=== PATIENT | female | born 1940 | race Two or more races ===

== ENCOUNTER 2017-02-08 16:18 | Inpatient (IN) | payer MEDICAID, MEDICARE ==
[~2017-02-08] VITALS: Ht 177.8 cm; Wt 67.1 kg
--- NOTE | 2017-02-08 16:38 | NUR ---
PT AMBULATORY TO ROOM, AWAITING MSE
--- NOTE | 2017-02-08 16:41 | NUR ---
PT AMBULATORY TO RESTROOM TO PROVIDE URINE SAMPLE
--- NOTE | 2017-02-08 17:07 | NUR ---
X-RAY AND LABTECH AT BEDSIDE.
--- NOTE | 2017-02-08 17:13 | NUR ---
EKG IN PROGRESS AT BEDSIDE BY DARRYL BAH
[2017-02-08 17:33] LABS: BASOPHIL % 0.5 % (0-2); PLATELET COUNT 233 x10^3mcL (130-400)
[2017-02-08 17:42] LABS: RED CELL DISTRIBUTION WIDTH 14.7 % (11.5-14.5)
--- NOTE | 2017-02-08 17:48 | NUR ---
BREATHING TX IN PROGRESS AT BEDSIDE
[2017-02-08 17:53] LABS: ALKALINE PHOSPHATASE 90 U/L (46-116); ALT/SGPT 10 U/L (14-59); AST/SGOT 14 U/L (15-37); BILIRUBIN TOTAL 0.9 mg/dL (0.20-1.00); C REACTIVE PROTEIN 3.2 mg/dL (<=0.9); CALCIUM 8.7 mg/dL (8.5-10.1); CARBON DIOXIDE 33.2 mmol/L (21-32); CHLORIDE SERUM 98 mmol/L (98-107); CREATININE SERUM 1.2 mg/dL (0.6-1.0); GLUCOSE SERUM 101 mg/dL (74-106); SODIUM SERUM 140 mmol/L (136-145); TOTAL PROTEIN, SERUM 6.2 g/dL (6.4-8.2)
[2017-02-08 17:54] LABS: ALBUMIN 2.8 g/dL (3.4-5.0)
[2017-02-08 17:55] LABS: POTASSIUM SERUM 2.9 mmol/L (3.5-5.1)
[2017-02-08] MEDS ORDERED: FUROSEMIDE40 MG PO (17:58)
[2017-02-08] MEDS ORDERED: CYCLOBENZAPRINE10 MG PO (17:59)
[2017-02-08] MEDS ORDERED: TOPROL XL25 MG PO (17:59)
[2017-02-08] MEDS ORDERED: XANAX0.25 MG PO (18:00)
[2017-02-08] MEDS ORDERED: FLOVENT DI100 MCG/A1 IH (18:00)
[2017-02-08] MEDS ORDERED: SPIRIVA18 MC1 INH (18:00)
[2017-02-08] MEDS ORDERED: PREDNISONE1 MG PO (18:01)
[2017-02-08] MEDS ORDERED: SIMVASTATIN20 M1 PO ×2 (18:01→20:17)
[2017-02-08] MEDS ORDERED: SEREVENT D0.046 MG/1 IH (18:01)
[2017-02-08] MEDS ORDERED: NIFEDIPINE30 MG PO (18:02)
[2017-02-08] MEDS ORDERED: ASPIR 8181 MG PO (18:02)
[2017-02-08] MEDS ORDERED: ACETAZOLAMIDE250 MG PO (18:02)
[2017-02-08 18:09] LABS: CK-MB 0.5 ng/mL (0-3.6)
[2017-02-08 18:10] LABS: UA SPECIFIC GRAVITY 1.025 (1.005-1.035)
[2017-02-08 18:11] LABS: microscopic required? YES; urine erythrocyte NEGATIVE (NEGATIVE)
[2017-02-08 18:16] LABS: FREE T4 1.26 ng/dL (0.76-1.46); FREE THYROXINE INDEX 3.2 ug/dL (1.4-4.5)
--- NOTE | 2017-02-08 18:21 | NUR ---
PT MEDICATED PER EMAR ORDERS. PT EDUCATED ON MEDICATIONS PRIOR TO ADMINISTRATION AND VERBALIZED UNDERSTANDING. PT REMAINS ON SOFTWARE DEVELOPMENT COORDINATOR WITH CALL LIGHT IN REACH
--- NOTE | 2017-02-08 18:49 | NUR ---
PT TO CT AND BACK VIA GURNEY WITHOUT INCIDENT. PT PLACED BACK ON CARDIAC MONITOIR WITH CALL LIGHT IN REACH.
--- NOTE | 2017-02-08 19:12 | NUR ---
REPORT GIVEN TO LATOYA SINHA TO ASSUME CARE OF PT PTS PRIMARY NURSE.
--- NOTE | 2017-02-08 20:43 | NUR ---
RECEIVED PT FROM ED VIA GUERNEY, CAME IN DUE TO SOB, DIARRHEA AND CHEST PAIN. AAOX4. SOB NOTED ON MODERATE EXERTION, ON 2.5LPM/NC, O2 SAT=96%. C/O MILD CHEST PAIN, SR W/ DEPRESSED T WAVE ON THE MONITOR. STATED THAT SHE HAS BEEN HAVING MUCOSY DIARRHEAL EPISODES. DENIES ABDOMINAL PAIN/NAUSEA/VOMITING. W/ BUE DARK DISCOLORATIONS. W/ EDEMA ON THE RIGHT HAND AND BLE (LEFT GREATER THAN RIGHT). PULSES ARE PALPABLE. RECEIVED PT FROM ED W/ HEPARIN DRIP ONGOING AT 1200 UNITS/HR. SIDE RAILS UPX2. CALL LIGHT ON REACH. DR. OCHOA AND MEDICAL STUDENT AT BEDSIDE. ENDORSED
[2017-02-08 20:55] VITALS: BP 125/60
[2017-02-08 20:57] VITALS: BP 125/60
--- NOTE | 2017-02-08 21:40 | NUR ---
SANDWICH AND TEA PROVIDED PER PATIENT'S REQUESTED. DENIES CHEST PAIN AT THIS TIME, STS " VERY RELAX". HEPARIN DRIPS ONGOING AT 1200 UNIT/HR TO LT HAND IV SITE. S/L TO RAC FLUSHED PATENT. BREATHING ON O2 N/C 2.5L. NO ACUTE DISTRESS NOTED. WILL CONTINUE TO MONITOR.
[2017-02-08 22:38] LABS: CHOLESTEROL/HDL RATIO 3.9; MAGNESIUM 1.8 mg/dL (1.8-2.4); PHOSPHOROUS 3.5 mg/dL (2.5-4.9)
--- NOTE | 2017-02-08 22:52 | NUR ---
STS HAVING PAIN LIKE NERVE PAIN TO BOTH HANDS. NORCO PO GIVEN, WILL CONTINUE TO MONITOR.
--- NOTE | 2017-02-08 22:55 | NUR ---
RESTING WITH EYES CLOSE. NO ANY DISTRESS NOTED. BSC PROVIDED. ROCEPHIN INFUSING WELL.
[2017-02-08 23:18] LABS: CARBON DIOXIDE 31.1 mmol/L (21-32); CHLORIDE SERUM 101 mmol/L (98-107); CREATININE SERUM 1.2 mg/dL (0.6-1.0); GLUCOSE SERUM 149 mg/dL (74-106); POTASSIUM SERUM 3.4 mmol/L (3.5-5.1); SODIUM SERUM 139 mmol/L (136-145)
--- NOTE | 2017-02-08 23:20 | NUR ---
HAD SEMI LOOSE BM, STOOL SPECIMEN SENT TO LAB FOR C DIFF.
--- NOTE | 2017-02-09 02:30 | NUR ---
PENING PTT RESULT.
--- NOTE | 2017-02-09 03:00 | NUR ---
LUH=802.8, HEPARIN HELD FOR 1 HOUR AND REDUCE INFUSION BY 200 UNITS/HR, HEPARIN WILL BE RESTARTED AT 0400HRS AT 1000 UNITS/HR PER PROTOCAL.
--- NOTE | 2017-02-09 04:00 | NUR ---
RESUMED HEPARIN DRIPS AT 1000 UNITS/HR PER PROTOCAL.
--- NOTE | 2017-02-09 05:25 | NUR ---
DENIES CHEST PAIN, BREATHING EASY ON O2 2.5L/M N/C. HAD WATERY BM X3 USING BSC WITH MINIMAL ASSISTANCE. DUE MEDS GIVEN. TOLERATED TO REGULAR DIET, NO VOMITING NOTED. HEPARIN ONGOING PER PROTOCAL, NEXT PTT DRAW AT 7AM.
[2017-02-09 06:03] VITALS: BP 125/70
--- NOTE | 2017-02-09 07:47 | NUR ---
PT RECEIVED DURING CHANGE OF SHIFT, ASLEEP BUT AROUSABLE, TELE 15, NSR WITH DEPRESSED T-WAVE, PULSES PRESENT, TRACE EDEMA BUE, LUNGS DIM ON 2.5L NC, BREATHING EVEN AND UNLABORED, BOWEL SOUNDS ACTIVE, REPORTS OF DIARRHEA, REPORTS OF DARK COLORED URINE, GENERALIZED WEAKNESS, DARK DISCOLORATIONS ON BUE, NO INDICATION OF PAIN, IV TO RAC SALINE LOCKED, IV TO LEFT HAND INFUSING HEPARIN AT 1000UNITS/HR, CALL LIGHT WITHIN REACH, WILL CONTINUE TO MONITOR.
[2017-02-09 07:49] LABS: BASOPHIL % 0.4 % (0-2); PLATELET COUNT 221 x10^3mcL (130-400)
[2017-02-09 07:50] LABS: RED CELL DISTRIBUTION WIDTH 15.8 % (11.5-14.5)
[2017-02-09 08:17] LABS: CARBON DIOXIDE 31.1 mmol/L (21-32); CHLORIDE SERUM 104 mmol/L (98-107); GLUCOSE SERUM 87 mg/dL (74-106); MAGNESIUM 1.7 mg/dL (1.8-2.4); PHOSPHOROUS 3.6 mg/dL (2.5-4.9); POTASSIUM SERUM 3.3 mmol/L (3.5-5.1); SODIUM SERUM 140 mmol/L (136-145)
[2017-02-09 08:46] LABS: T3 TOTAL 0.82 ng/mL
--- NOTE | 2017-02-09 09:44 | NUR ---
PT DENIES SOB, C/O PAIN RELATED TO DIARRHEA, CALL LIGHT WITHIN REACH, WILL CONTINUE TO MONITOR.
--- NOTE | 2017-02-09 09:49 | NUR ---
UNABLE TO DO ECHO PT ON COMMODE/TRAY.
[2017-02-09 10:01] VITALS: BP 120/59
--- NOTE | 2017-02-09 10:11 | NUR ---
PT DENIES SOB, C/O PAIN RELATED TO DIARRHEA, PT REQUESTING HOT TEA FNS NOTIFIED, CALL LIGHT WITHIN REACH, WILL CONTINUE TO MONITOR.
[2017-02-09 10:58] LABS: ERYTHROCYTE SED RATE 9 mm/hr (0-30)
--- NOTE | 2017-02-09 11:24 | NUR ---
PT REMOVED OWN IV LINE, CATHETER INTACT, HEPARIN AND NS NOW INFUSING IN RAC, CALL LIGHT WITHIN REACH, WILL CONTINUE TO MONITOR.
--- NOTE | 2017-02-09 12:00 | NUR ---
echo still pending pt unable to stay in bed for exam.up to commode.
--- NOTE | 2017-02-09 12:18 | NUR ---
US AT BEDSIDE, ECHO IN PROGRESS.
--- NOTE | 2017-02-09 12:29 | NUR ---
PT HAS HAD TWO THERAPEUTIC RESULTS FOR PTT, NEXT PTT ORDERED FOR 5AM.
--- NOTE | 2017-02-09 13:06 | NUR ---
PT DENIES SOB, DENIES PAIN, BP 92/53, DENIES LIGHT-HEADEDNESS/DIZZINESS, CALL LIGHT WITHIN REACH, WILL CONTINUE TO MONITOR.
[2017-02-09 14:06] VITALS: BP 92/53
--- NOTE | 2017-02-09 14:17 | NUR ---
PT ASLEEP, NO INDICATION OF PAIN, BREATHING EVEN AND UNLABORED, CALL LIGHT WITHIN REACH, RECEIVED CALL FROM "[employer]" WILL NOTIFY PT WHEN AWAKE, WILL CONTINUE TO MONITOR.
--- NOTE | 2017-02-09 14:38 | NUR ---
Initial Nutrition Assessment Dx: Pulomonary embolism and hypertension PMHx: COPD, w/ bronchitis and emphysema, ACSDHF,Pulmonary HTN PSHx:None Labs: (02/09) K:3.3L, B, Ca:8.0L, M.7L, (02/08) Chol:226H, 146H, Meds: Colace, Lactines, Lasix, Prednisone, Pulmicort, NS IV, Zofran, Heparin Diet:Regular PO Intake:B:50% L:50% Ht: 70in, 5'10 Wt: 148#,67.13kg BMI:21.2kg/m2 (normal weight) IBW: 150#,68kg %IBW: 99% UBW:unable to obtain Age:76 y/o female Food Allergies:unable to obtain. Skin:dark discoloration to BUE. David: 20 Edema:trace to BUE and BLE. GI: bowel sounds active with diarrhea reported. Last BM:02/08 Nursing Trigger:N/V/D>3days Pt had been having chest pain and diarrhea x1wk and was admitted with pulmonary embolism and HTN. CTA chest showed diffuse pulmonary emboli involving the right main and left lower lobe descending pulmonary arteries; which were non-occlusive and may be chronic, per H&P. Per bed huddle this morning, pt's stool came back positive for C. Diff and will have a consult with Dr. Finley. Attempted to visit pt twice and both times pt was asleep and would not wake up. Observed pt's lunch tray half eaten. Spoke to RN, who reports pt is afraid to eat because of her diarrhea and gets full fast. Problem with: N: No V: No D: Yes, pt with diarrhea C:No Problems with: Chewing: No Swallowing: No Current appetite: poor to fair Recent wt change:unable to obtain %wt change:N/A Vitamin/Supplement use:unable to obtain Special diet at home: Regular per admission assessment Physical activity: unable to obtain Education: unable to provide due to pt being asleep Estimated Nutritional Needs Based on actual body weight 67kg Energy: 1675-2010kcal/d (25-30kcal/kg for geriatric maintenance) Protein: 67g/d (1.0g/kg for geriatric maintenance) Fluid: 2345ml/d (35 ml/kg for diarrhea) or per doctor Nutrition Diagnosis 1. Altered GI function related to C. Diff as evidenced by pt with diarrhea. 2. Inadequate protein energy intake related to pt afraid to eat seondary to diarrhea as evidenced by PO intake 50% x 2meals, ~50%. Intervention 1.Recommend continue with current diet and encourage PO intake. 2. Recommend adding Banatrol BID for pt's diarrhea. Monitor/Evaluate Goal: PO intake at least 75% of estimated needs, improved GI function Monitor: PO intake, Labs, GI function F/U in 3-5 days as moderate risk:02/12-
--- NOTE | 2017-02-09 14:39 | NUR ---
1.Recommend continue with current diet and encourage PO intake. 2. Recommend adding Banatrol BID for pt's diarrhea.
--- NOTE | 2017-02-09 15:26 | NUR ---
PT DENIES SOB, DENIES PAIN, TESTED POSITIVE FOR C. DIFF, DR. MARTA MARIA, CONTACT PRECAUTIONS INITIATED, CALL LIGHT [facility], WILL CONTINUE TO MONITOR.
[2017-02-09 16:21] VITALS: BP 130/81
--- NOTE | 2017-02-09 16:35 | NUR ---
PT DENIES SOB, DENIES PAIN, CALL LIGHT WITHIN REACH, REQUESTING HOT TEA, CALL LIGHT WITHIN REACH, WILL CONTINUE TO MONITOR.
--- NOTE | 2017-02-09 17:15 | NUR ---
PT DENIES SOB, DENIES PAIN, PT DENIES BM DURING THIS SHIFT, CALL LIGHT WITHIN REACH, WILL CONTINUE TO MONITOR.
--- NOTE | 2017-02-09 18:14 | NUR ---
PT DENIES SOB, DENIES PAIN, STATES SHE WAS UNABLE TO EAT DINNER, CALL LIGHT WITHIN REACH, WILL ENDORSE PT TO NEXT SHIFT.
--- NOTE | 2017-02-09 19:30 | NUR ---
PT FOUND IN BED WATCHING TV. SHE IS HARD OF HEARING BILATERALLY BUT SHE IS ABLE TO UNDERSTAND AND COMMUNICATE WELL. SHE IS A/O X4. PT ON TELE MONITOR #15, NSR WITH A RATE OF 78. SHE DENIES ANY CHEST PAIN AT THIS TIME. BILATERAL PERIPHERAL PULSES ARE PALPABLE. EDEMA NOTED IN THE RIGHT HAND AND BLE. PT IS CURRENTLY ON HEPARIN DRIP AT 1,000 UNITS/HR. PT IS CURRENTLY ON 4L NASAL CANNULA WITH O2 SAT AT 95% LUNG SOUNDS ARE DIMINSHED BILTERALLY. SHE IS ON RT PROTOCOL. PT IS ON CONTACT ISOLATION FOR C-DIFF. HER BOWEL SOUNDS ARE ACTIVE AND STATES HER LAST BM WAS YESTERDAY, 02/08/17 AND DESCRIBES IT DIARRHEA. PT IS ABLE TO FREELY VOID URINE AND DESCRIBES HER LAST URINE WAS NORMAL AND YELLOW IN COLOR. SHE IS AMBULATORY WITHOUT ASSIST AND NO WEAKNESS IS NOTED. COMMODE IS AT BEDSIDE. HER SKIN IS WNL WITH DARK DISCOLORATION ON BUE. SHE DENIES ANY CHEST PAIN AT THIS TIME. NO SOB OR RESP DISTRESS NOTED. HE IV SITE IS DRY AND INTACT WITH NO SIGNS OF INFILTRATION. IF FLUIDS AND HEPARIN ARE FLOWING WELL. WILL CONTINUTE TO MONITOR THE PT. ROOM IS FREE AND CLEAR OF ANY HAZARDS. CALL LIGHT WITHIN REACH.
[2017-02-09 19:51] VITALS: BP 99/51
--- NOTE | 2017-02-09 20:20 | NUR ---
PT GOT UP TO USE BEDSIDE COMMODE TO HAVE BM. STOOL WAS WATERY WITH MUCOUS.
[2017-02-09 22:15] VITALS: BP 95/59
--- NOTE | 2017-02-09 22:35 | NUR ---
SPOKE WITH PT'S DAUGHTER, TERRENCE, AND UPDATED HER ON HER MOTHER'S CONDITION. PT WAS ALSO ABLE TO SPEAK WITH HER DAUGHTER. PT IN BED AND THANKFUL TO HAVE THE CHANCE TO SPEAK WITH HER DAUGHTER. PT DENIES CHEST PAIN AND SOB AT THIS TIME. WILL CONTINUE TO MONITOR. CALL LIGHT WITHIN REACH.
--- NOTE | 2017-02-09 23:20 | NUR ---
PT C/O ABDOMINAL PAIN 7/10 ON PAIN SCALE. MEDICATED PRN. WILL REASSES PAIN IN 1 HOUR
--- NOTE | 2017-02-10 00:32 | NUR ---
PT LAYING IN BED. PT STATES PAIN IN ABDOMEN IS NOW 2/10 AND THAT THE PAIN IS RELIEVED. WILL CONTINUE TO MONITOR. ROOM IS FREE AND CLEAR OF ANY HAZARDS. CALL LIGHT WITHIN REACH.
--- NOTE | 2017-02-10 02:56 | NUR ---
PT IS LAYING IN BED WATCHING TV. ASKED IF SHE WAS ABLE TO SLEEP AND SHE SAID YES. REQUESTED FOR COFFEE AND PUDDING. PT DENIES AT CHEST PAIN OR SOB AT THIS TIME. NO SIGNS OF RESP DISTRESS. WILL CONTINUE TO MONITOR. CALL LIGHT WITHIN REACH.
--- NOTE | 2017-02-10 04:34 | NUR ---
PT LAYING IN BED RESTING AND ASLEEP. NO SOB OR RESPIRATORY DISTRESS AT THIS TIME. NO C/O CHEST PAIN. ROOM IS FREE AND CLEAR OF ANY HAZARDS. CALL LIGHT WITHIN REACH. WILL CONTINUE TO MONITOR.
--- NOTE | 2017-02-10 06:10 | NUR ---
PT C/O BEING NERVOUS AND REQUEST SOMETHING TO HELP CALM HER NERVES. XANAX PRN GIVEN.
[2017-02-10 06:15] VITALS: BP 139/64
--- NOTE | 2017-02-10 06:19 | NUR ---
PT UP IN BED WATCHING TELEVISION. DENIES ANY CHEST PAIN OR SOB AT THIS TIME. NO RESP DISTRESS NOTED. PT JUST FREELY VOIDED OF URINE, YELLOW IN COLOR. PT HAD 3 SEPARATE BM THROUGHOUT THE SHIFT, ALL WATERY AND DIARRHEA CONSISTENCY WITH MUCUS. PT COMPLIED WITH NURSING CARE THROUGHOUT THE SHIFT WITH NO SIGNIFICANT EPISODES. HEPRAIN DRIP AND NS INFUSING WELL. IV SITE IS DRY AND INTACT. NO SIGNS OF INFILTRATION. ROOM IS FREE AND CLEAR OF ANY HAZARDS. CALL LIGHT WITHIN REACH.
[2017-02-10 06:58] LABS: CALCIUM 8.4 mg/dL (8.5-10.1); CHLORIDE SERUM 103 mmol/L (98-107); CREATININE SERUM 1.1 mg/dL (0.6-1.0); GLUCOSE SERUM 107 mg/dL (74-106); MAGNESIUM 1.9 mg/dL (1.8-2.4); POTASSIUM SERUM 3.1 mmol/L (3.5-5.1); SODIUM SERUM 139 mmol/L (136-145)
[2017-02-10 07:05] LABS: BASOPHIL % 0.6 % (0-2); PLATELET COUNT 212 x10^3mcL (130-400)
[2017-02-10 07:06] LABS: RED CELL DISTRIBUTION WIDTH 15.6 % (11.5-14.5)
--- NOTE | 2017-02-10 07:25 | NUR ---
CARE ENDORSED TO AM NURSE MACARIO/NELLY
--- NOTE | 2017-02-10 07:49 | NUR ---
PATIENT ALERT AND ORIENTED, [facility]. TELE #15, DENIES CHEST PAIN AT THIS TIME. LUNG SOUNDS DIMINSHED BILATERALLY, 2L NC, BREATHING EVEN AND UNLABORED. PULSES ARE PRESENT AND EQUAL ON ALL EXTREMETIES, CAP REFILL <3 SEC, TRACE EDEMA ON BLE. LBM 02/10/17, LOOSE STOOL, BS ACTIVE, ABD SOFT AND ROUND. REPORTS NO PAIN AT THIS TIME. IV RAC WNL, HEPARIN @1000 UNITS/HR AND NS @ 30
--- NOTE | 2017-02-10 09:18 | NUR ---
ROUNDS MADE BY DR. HAWK AND MEDICAL TEAM, PRIMARY NURSE AND CHARGE NURSE PRESENT. PLAN TO CONTINUE IV ANTIOBIOTICS, D/C HEPARIN AND START COUMADIN DISCUSSED WITH PATIENT
[2017-02-10 09:30] VITALS: BP 99/72
[2017-02-10 14:00] VITALS: BP 116/49
--- NOTE | 2017-02-10 14:53 | NUR ---
PT SLEEPING, EASILY AROUSABLE, GIEN MEDICATIONS, TOLERATED WELL. NO SOB OR DISTRESS NOTED
--- NOTE | 2017-02-10 16:36 | NUR ---
WALTER ALVAREZ RN [facility], CALLED AND REQUESTED TO WEAN DOWN ON O2, O2 3L TO 2L, TOLERATING WELL
[2017-02-10 17:53] VITALS: BP 130/82
[2017-02-10 18:39] LABS: BASOPHIL % 0.7 % (0-2); PLATELET COUNT 228 x10^3mcL (130-400)
[2017-02-10 18:44] LABS: RED CELL DISTRIBUTION WIDTH 15.7 % (11.5-14.5)
--- NOTE | 2017-02-10 19:20 | NUR ---
PT RECEIVED LAYING IN BED, A/O X4. NO DISTRESS NOTED. PT DENIES SOB AND CHEST PAIN. PT DENIES HAVING DIARRHEA AT THIS TIME. IV SITE TO RAC, PATENT AND INTACT. IV FLUIDS INFUSING PER DOCTOR'S ORDER. HEPARIN INFUSING AT 1,000 UNITS/HOUR. BED IN LOWEST POSITION. CALL LIGHT WITHIN REACH. WILL CONTINUE TO MONITOR.
--- NOTE | 2017-02-10 19:26 | NUR ---
PATIENT RESTING CONFORTABLY, DENIES ANY PAIN NO SOB ON 2L NC, NO DISTRESS NOTED. REPORTS NO BM TODAY
[2017-02-10 21:21] VITALS: BP 100/53
--- NOTE | 2017-02-11 00:47 | NUR ---
PT SLEEPING SOUNDLY IN BED. NO RESP DISTRESS OR SOB NOTED. PT ALSO DOES NOT APPEAR TO BE IN PAIN. HEPARIN INFUSING AT 1,000 UNITS/HR. IV FLUIDS FLOWING PER DOCTOR'S ORDER. ROOM IS FREE AND CLEAR OF ANY HAZARDS. CALL LIGHT WITHIN REACH. WILL CONTINUE TO MONITOR.
--- NOTE | 2017-02-11 02:17 | NUR ---
PT C/O ABDOMINAL PAIN 7/10 ON PAIN SCALE. PRN MED GIVEN. WILL REASSESS PAIN IN 1 HOUR. CALL LIGHT WITHIN REACH. WILL CONTINUE TO MONITOR.
--- NOTE | 2017-02-11 05:05 | NUR ---
PATIENT RESTED IN INTERVALS THROUGHOUT THE NIGHT. NO DISTRESS NOTED. MEDICATED FOR PAIN WITH NORCO PO X 1 PER DOCTOR'S PRN ORDER. NO DIARRHEA THROUGHOUT THE NIGHT. SAFETY AND COMFORT MEASURES MAINTAINED. BED IN LOWEST POSITION. CALL LIGHT WITHIN REACH. WILL CONTINUE TO MONITOR AND ENDORSE TO NEXT SHIFT NURSE.
[2017-02-11 05:29] VITALS: BP 108/55
[2017-02-11 06:15] LABS: CALCIUM 9.1 mg/dL (8.5-10.1); CARBON DIOXIDE 27.5 mmol/L (21-32); CHLORIDE SERUM 106 mmol/L (98-107); CREATININE SERUM 1.2 mg/dL (0.6-1.0); GLUCOSE SERUM 141 mg/dL (74-106); POTASSIUM SERUM 4.3 mmol/L (3.5-5.1); SODIUM SERUM 139 mmol/L (136-145)
--- NOTE | 2017-02-11 06:46 | NUR ---
NOTIFIED DR CHOE PATIENT'S POTASSIUM LEVEL NOW 4.3. PER DR DAIJA Smith-FIDENCIO.
--- NOTE | 2017-02-11 08:00 | NUR ---
PT AWAKE AND ALERT. TEMP 97.8. PT IS MED SURG PT AT THIS TIME. GA=666/50. HR=72. PULSE OX 100% ON OXYGEN 2L NC. CONTINUES WITH RT TX ORDERED. BREATH SOUNDS ASCULTATE EXPIRATORY WHEEZING. NO COUGH NOTED. STATES "I GET SOB WHEN I GO TO THE BATHROOM. I USE OXGYEN AT HOME 2.5 L, BUT WHEN IT GETS BAD I RAISE IT TO 3L." ABD SOFT, BOWEL TONES PRESENT. LAST BM 02-10-17, DX POSITIVE C DIFF. CONTACT ISOLATION IN PLACE. PT ON PO FLAGYL. STATES "STOMACH FEELING BETTER, LOOSE STOOLS SLOWING DOWN." VOIDING QS. NO EDEMA PULSES PRESENT. PT ON HEPARIN INFUSION WITH RATE 1000 UNITS PER HOUR. RECEIVED COUMADIN 10MG PO 02-10-17. PROTIME THIS AM 10.3, INR=1.0, PTT=54.7. NO CHANGE IN HEPARIN DOSAGE. IV SITE PATENT RAC. NORMAL SALINE INFUSING AT 30CC/HR. SCD SIDE RAILS UP X2. CALL LIGHT IN REACH. IN PLACE. DENIES PAIN TO RIGHT HAND.
[2017-02-11 10:57] VITALS: BP 108/55
[2017-02-11 12:49] VITALS: Ht 177.8 cm; Wt 67.1 kg
--- NOTE | 2017-02-11 14:29 | NUR ---
PT IV SITE CARE RAC. NO S/S OF INFILTRATION. IVF CONTINUES PATENT. C/O FEELING ANXIOUS. MED WITH XANAX 0.25MG PO ORDERED. NO STOOL SO FAR TODAY. VOIDING QS. DENIES PAIN. CALL LIGHT IN REACH.
--- NOTE | 2017-02-11 15:30 | NUR ---
PT SLEEPING. NO DISTRESS NOTED. IV CONTINUES PATENT. CALL LIGHT IN REACH.
--- NOTE | 2017-02-11 17:30 | NUR ---
PT SET UP FOR DINNER MEAL. APPETITE GOOD. DENIES PAIN. IV CONTINUES PATENT. HEPARIN 1000 UNITS PER HOUR. NS AT 30CC/HR. MED WITH COUMADIN 10MG PO ORDERED. CALL LIGHT IN REACH. CONTACT ISOLATION MAINTAINED.
[2017-02-11 17:35] VITALS: BP 117/55
--- NOTE | 2017-02-11 19:20 | NUR ---
PATIENT RECEIVED RESTING WITH EYES CLOSED. AWAKENS WITH VERBAL STIMULUS. NO RESP DISTRESS NOTED. PATIENT DENIES PAIN AT THIS TIME. IV SITE TO RIGHT AC, PATENT AND INTACT. IV FLUID INFUSING PER DOCTOR'S ORDER. HEPARIN DRIP INFUSING AT 1000 UNITS/HR. BED IN LOWEST POSITION. CALL LIGHT WITHIN REACH. WILL CONTINUE TO MONITOR.
[2017-02-11 20:49] VITALS: BP 123/60
[2017-02-11 22:19] VITALS: BP 126/60
--- NOTE | 2017-02-12 05:10 | NUR ---
PATIENT RESTED IN INTERVALS THROUGHOUT THE NIGHT. NO RESP DISTRESS NOTED. NO C/O PAIN/DISCOMFORT. SAFETY AND COMFORT MEASURES MAINTAINED. BED IN LOWEST POSITION. CALL LIGHT WITHIN REACH. WILL CONTINUE TO MONITOR AND ENDORSE TO NEXT SHIFT NURSE.
[2017-02-12 06:08] VITALS: BP 128/73
--- NOTE | 2017-02-12 07:10 | NUR ---
PT RECEIVED. AT THIS TIME THE PATIENT IS RESTING IN BED. PT IS AAOX4. LOWER ELWHA. PATIENT IS A MED SURG PATIENT WITH NO TELE MONITOR IN PLACE. HEPARIN DRIP IS INFUSING AT 1000UNITS/HOUR. NS INFUSING PER ORDER IN RAC. PT RESPIRATIONS ARE EVEN AND UNLABORED ON 2L NC. NO SIGN OF RESPIRATORY DISTRESS. DENIES PAIN AT THIS TIME. WILL CONTINUE TO MONITOR. ALL SAFETY MEASURES IN PLACE. CALL LIGHT WITHIN REACH.
[2017-02-12 07:52] LABS: BASOPHIL % 0.2 % (0-2); PLATELET COUNT 259 x10^3mcL (130-400)
[2017-02-12 07:54] LABS: RED CELL DISTRIBUTION WIDTH 16.1 % (11.5-14.5)
[2017-02-12 07:58] LABS: CALCIUM 9.1 mg/dL (8.5-10.1); CHLORIDE SERUM 103 mmol/L (98-107); CREATININE SERUM 1.3 mg/dL (0.6-1.0); GLUCOSE SERUM 106 mg/dL (74-106); PHOSPHOROUS 4.6 mg/dL (2.5-4.9); POTASSIUM SERUM 4.4 mmol/L (3.5-5.1); SODIUM SERUM 138 mmol/L (136-145)
--- NOTE | 2017-02-12 08:40 | NUR ---
PTT=78.2 HEPARIN DRIP REDUCED TO 900 UNITS/HR PER HEPARIN DRIP PROTOCOL. NEXT PTT SCHEDULED FOR 1245.
[2017-02-12 09:55] VITALS: BP 124/56
--- NOTE | 2017-02-12 12:30 | NUR ---
PT HAS BEEN COMPLAINING OF DIARRHEA. PHYSICIAN NOTIFIED, STATED THAT PT IS ALREADY BEING TREATED WITH FLAGYL FOR CDIFF ALREADY. WILL MONITOR FOR NEW ORDERS.
--- NOTE | 2017-02-12 14:17 | NUR ---
PTT=63.9. NO ADJUSTMENT NEEDED TO HEPARIN DRIP AT THIS TIME PER HEPARIN DRIP PROTOCOL. RATE CONTINUES AT 900ML/HR.
[2017-02-12 18:13] VITALS: BP 129/66
--- NOTE | 2017-02-12 19:21 | NUR ---
REPORT GIVEN TO NIGHT NURSE. AT THIS TIME THE PATIENT IS RESTING IN BED. NO ACUTE CHANGES TO CONDITION. PATIENT DENIES PAIN AT THIS TIME. RESPIRATIONS ARE EVEN AND UNLABORED ON 2L OXYGEN VIA NC. HEPARIN DRIP INFUSING AT 900UNITS/HOUR. NS INFUSING AT 50ML/HR. ALL SAFETY MEASURES ARE IN PLACE.
--- NOTE | 2017-02-12 19:30 | NUR ---
PATIENT RECEIVED AWAKE, ALERT, AND ORIENTED X 4. NO RESP DISTRESS NOTED. PATIENT DENIES SOB. IV SITE TO RIGHT AC, PATENT AND INTACT. IV FLUID INFUSING PER DOCTOR'S ORDER. HEPARIN DRIP INFUSING AT 900 UNITS/HR. BED IN LOWEST POSITION. CALL LIGHT WITHIN REACH. WILL CONTINUE TO MONITOR.
--- NOTE | 2017-02-12 19:54 | NUR ---
PATIENT PTT 45. REBOLUSED WITH 2700 UNITS. INCREASED INFUSION TO 1000UNITS/HR. WITNESSED BY BHARATH SANCHEZ. PTT REORDERED FOR 0000.
[2017-02-12 22:52] VITALS: BP 105/54
--- NOTE | 2017-02-13 01:05 | NUR ---
PTT=58.4. NO CHANGE AT THIS TIME. PTT REORDERED FOR 0400.
[2017-02-13 04:35] LABS: BASOPHIL % 0.2 % (0-2); PLATELET COUNT 248 x10^3mcL (130-400)
[2017-02-13 04:36] LABS: CALCIUM 8.6 mg/dL (8.5-10.1); CARBON DIOXIDE 30.6 mmol/L (21-32); CHLORIDE SERUM 106 mmol/L (98-107); CREATININE SERUM 1.5 mg/dL (0.6-1.0); GLUCOSE SERUM 119 mg/dL (74-106); MAGNESIUM 2.1 mg/dL (1.8-2.4); PHOSPHOROUS 4.9 mg/dL (2.5-4.9); POTASSIUM SERUM 4.1 mmol/L (3.5-5.1); RED CELL DISTRIBUTION WIDTH 15.6 % (11.5-14.5); SODIUM SERUM 138 mmol/L (136-145)
--- NOTE | 2017-02-13 04:56 | NUR ---
PATIENT PTT 69.9. DECREASED HEPARIN DRIP TO 900UNITS/HR. PTT ORDERED FOR 0900.
--- NOTE | 2017-02-13 05:04 | NUR ---
PATIENT RESTED THROUGHOUT THE NIGHT. NO RESP DISTRESS NOTED. NO C/O PAIN. SAFETY AND COMFORT MEASURES MAINTAINED. BED IN LOWEST POSITION. CALL LIGHT WITHIN REACH. WILL CONTINUE TO MONITOR AND ENDORSE TO NEXT SHIFT NURSE.
[2017-02-13 05:31] VITALS: BP 122/63
--- NOTE | 2017-02-13 07:39 | NUR ---
NEW IV STARTED TO RIGHT HAND, ONE ATTEMPT 24G.
--- NOTE | 2017-02-13 07:45 | NUR ---
PT AWAKE LAERT AND ORIENTED X4, ABLE TO MAKE NEEDS KNOWN, MAKAH. MEDSURG PT. TRACE EDEMA TO BLE. LUNGS COUNDS DIMINISHED TO BLL. BOWEL TONES ACTIVE IN ALL QUADS. BRP TO BSC. IV LEAKING WILL PLACE NEW LINE. DENIES PAIN. NO SIGNS OF DISTRESS CALL LIGHT IN REACH WILL CONTINUE TO MONITOR.
--- NOTE | 2017-02-13 10:20 | NUR ---
EVALUATED Pt FOR HOME O2 AT THIS TIME. SPO2 ON O2 RESTIN% SPO2 ON O2 AMBULAIN% SPO2 ON RA AMBULATIN%
[2017-02-13 10:24] VITALS: BP 125/58
[2017-02-13] MEDS ORDERED: FLA500 PO (10:59)
[2017-02-13] MEDS ORDERED: COUMADIN2.5 MG PO (11:02)
[2017-02-13 12:02] VITALS: BP 125/58
--- NOTE | 2017-02-13 14:45 | NUR ---
PT AND DAUGHTER [place], REFUSING TO STAY FOR PORTABLE 02 TANK. TERRENCE STATED " MY GRANDBABY IS IN THE CAR I'M NOT WWAITING FOR YOU GUYS TO GET THE TANK [employer] ALREADY CALLED AND THE COMPANY SAID THEY ARE DELIVERING THE MACHINE NOW, PLUS SHE DOESNT NEED 02 WHEN IN THE CAR" IT WAS EXPLAINED THAT FOR SAFETY REASONS ITS SUGGESTED THAT THE PT USES PORTABLE 02, BOTH THE PT AND PTS DAUGHTER IN [place] DECLINED TO WAIT. WILL GIVE DISCHARGE INSTRUCTIONS.
--- NOTE | 2017-02-13 14:50 | NUR ---
DISCHARGE INSTRUCTIONS GIVEN TO PT AND PTS DAUGHTER [place], PT MADE AWARE OF FOLLOW UP APPTS AND PRESCRIPTIONS, BOTH VERBALIZED UNDERSTANDING. TERRENCE STATED THAT SHE HAD CALLED THE PTS 02 COMPANY AND THEY ARE DELIVERING THE 02 TANK THIS AFTERNOON, AND STATED "I'M VERY BUSY AND I'M NOT WAITING AROUND FOR YOU GUYS TO FIGURE IT OUT". IV DC'D, ALL BELONGINGS TAKEN OFF THE FLOOR BY PT. PT ACCOMPANIED DOWN TO LOBBY.
== END 2017-02-13 14:50 | disposition home or self-care (01) | DRG 134 ==
LOC: ED 16:18 → DU 19:48 → MU 02-11 06:54
PROVIDERS: Specialist; ADMIT Family Medicine
DX: I26.99 Other pulmonary embolism without acute cor pulmonale (principal); N17.0 Acute kidney failure with tubular necrosis; E43 Unspecified severe protein-calorie malnutrition; I50.43 Acute on chronic combined systolic (congestive) and diastolic (congestive) heart failure; A04.7 Enterocolitis due to Clostridium difficile; J44.9 Chronic obstructive pulmonary disease, unspecified; I27.2 Other secondary pulmonary hypertension; N39.0 Urinary tract infection, site not specified; E87.6 Hypokalemia; M94.0 Chondrocostal junction syndrome [Tietze]; S60.221D Contusion of right hand, subsequent encounter; I10 Essential (primary) hypertension; F17.210 Nicotine dependence, cigarettes, uncomplicated; Z68.21 Body mass index [BMI] 21.0-21.9, adult; Z99.81 Dependence on supplemental oxygen; W23.0XXD Caught, crushed, jammed, or pinched between moving objects, subsequent encounter
CPT/HCPCS: 82962; 83880; 84439; 94150; J0696; J1644; J3480; J7030; J7050; J7512; J7613; J7620; J7626; J7644; Q0092; Q9967